=== PATIENT | male | born 1985 | race Caucasian/White ===

== ENCOUNTER 2019-05-04 19:46 | Emergency (ER) | payer OTHER ==
[~2019-05-04] VITALS: Ht 188 cm; Wt 81.7 kg
[~2019-05-04 19:46] MED LIST: CEPH500 PO; CRUTCH USE; DIAZ5 PO; DIPH50 PO; ERYT1OIN RIGHTEYE; HYDACE5 PO; IBUP600 PO; IBUP800 PO; METPRE4DP PO; NAPR500 PO; NAPR550 PO; OXYACE5T PO; PENVK500 PO; PROM25 PO; RANI150 PO; RXHYDACE PO; RXOXYACE PO
[2019-05-04] MEDS ORDERED: Robaxin500 MG PO (22:37)
== END 2019-05-04 22:44 | disposition home or self-care (01) ==
LOC: ER 19:46
DX: M54.5 Low back pain (principal); X50.9XXA Other and unspecified overexertion or strenuous movements or postures, initial encounter; F17.210 Nicotine dependence, cigarettes, uncomplicated
CPT/HCPCS: 72100; 96372; 99283-25; J1885

== ENCOUNTER 2020-08-01 13:55 | Day surgery (SDC) | payer BC ==
[~2020-08-01 13:55] MED LIST changes: +Robaxin500 MG PO
== END 2020-08-01 22:50 | disposition home or self-care (01) ==
LOC: RAD 13:55 → MRI 16:00 → RAD 22:50
DX: S63.501D Unspecified sprain of right wrist, subsequent encounter (principal)
CPT/HCPCS: 25246; 73115; 73222; 77002; A9577; Q9967

== ENCOUNTER 2021-02-15 19:14 | Emergency (ER) | payer BC ==
[~2021-02-15] VITALS: Ht 190.5 cm; Wt 88.5 kg
== END 2021-02-15 20:31 | disposition home or self-care (01) ==
LOC: ER 19:14
DX: K04.7 Periapical abscess without sinus (principal); F17.210 Nicotine dependence, cigarettes, uncomplicated
CPT/HCPCS: 41800; 99283-25

== ENCOUNTER 2022-08-06 12:26 | Emergency (ER) | payer OTHER ==
[~2022-08-06] VITALS: Ht 188 cm; Wt 86.2 kg
== END 2022-08-06 14:03 | disposition home or self-care (01) ==
LOC: ER 12:26
DX: S93.402A Sprain of unspecified ligament of left ankle, initial encounter (principal); F17.210 Nicotine dependence, cigarettes, uncomplicated; W18.42XA Slipping, tripping and stumbling without falling due to stepping into hole or opening, initial encounter
CPT/HCPCS: 73610

== ENCOUNTER 2023-01-03 10:20 | Emergency (ER) | payer OTHER ==
[~2023-01-03] VITALS: Ht 190.5 cm; Wt 88.5 kg
[2023-01-03] MEDS ORDERED: Neurontin 300300 MG PO (11:43)
== END 2023-01-03 11:56 | disposition home or self-care (01) ==
LOC: ER 10:20
DX: M54.50 Low back pain, unspecified (principal); F17.210 Nicotine dependence, cigarettes, uncomplicated
CPT/HCPCS: 99283; A9270

== ENCOUNTER 2023-09-14 14:55 | Emergency (ER) | payer OTHER ==
[~2023-09-14] VITALS: Ht 188 cm; Wt 90.7 kg
[~2023-09-14 14:55] MED LIST changes: +Neurontin 300300 MG PO
[2023-09-14 14:59] VITALS: BP 139/91
[2023-09-14] MEDS ORDERED: AMOCLA875 PO (15:06)
== END 2023-09-14 15:09 | disposition home or self-care (01) ==
LOC: ER 14:55
DX: K02.9 Dental caries, unspecified (principal); F17.200 Nicotine dependence, unspecified, uncomplicated
CPT/HCPCS: 99282

== ENCOUNTER 2023-11-07 17:13 | Emergency (ER) | payer OTHER ==
[~2023-11-07] VITALS: Ht 188 cm; Wt 86.2 kg
[~2023-11-07 17:13] MED LIST changes: +AMOCLA875 PO
[2023-11-07 17:50] VITALS: BP 155/81
[2023-11-07] MEDS ORDERED: PENVK500 PO (17:51)
== END 2023-11-07 18:31 | disposition home or self-care (01) ==
LOC: ER 17:13
DX: K04.7 Periapical abscess without sinus (principal); F17.200 Nicotine dependence, unspecified, uncomplicated
CPT/HCPCS: 99282